=== PATIENT | female | born 1935 | race Caucasian/White ===

== ENCOUNTER 2018-02-04 09:27 | Inpatient (IN) | payer MEDICARE ==
[~2018-02-04] VITALS: Ht 157.5 cm; Wt 63.3 kg
[~2018-02-04 09:27] MED LIST: ALLOPURINOL100 MG PO; ARICEPT5 MG PO; ATORVASTATIN CA20 MG PO; B COMPLEX # 11 EACH PO; B-121000 MCG PO; BAYER WOMEN'S1 EACH PO; CITALOPRAM HBR20 MG PO; CRESTOR10 MG PO; DILTIAZEM HCL30 MG PO; ECOTRIN325 MG PO; EXELON1 EAC1 TD; GUAIFENESIN DM118 ML PO; IRBESARTAN150 MG PO; LEVAQUIN500 MG PO; LISINOPRIL2.5 MG PO; METOPROLOL TART25 MG PO; NAMENDA10 MG PO; NEXIUM40 MG PO; PEPCID20 MG PO; RISPERIDONE0.5 MG PO; VITAMIN D1000 UNI1 PO
[2018-02-04] MEDS ORDERED: ACETAMINOPHEN 1000 MG/100 ML IV STA (09:29)
[2018-02-04] MEDS ORDERED: SODIUM CHLORIDE 0.9% 1000ML 1,000 ML IV ONE (09:30)
[2018-02-04 10:17] LABS: BASOPHILS % 0.4 % (0.0-1.0); EOSINOPHILS % 0.2 % (0.0-6.0); HEMATOCRIT 44.7 % (34.2-44.1); HEMOGLOBIN 14.9 g/dL (12.0-16.0); LYMPHOCYTES # (AUTO) 0.5 (1.0-3.2); LYMPHOCYTES % 9.7 % (18.0-39.1); MEAN CORPUSCULAR HEMOGLOBIN 30.6 pg (28-32); MEAN CORPUSCULAR HGB CONC 33.3 g/dL (31-35); MEAN CORPUSCULAR VOLUME 91.8 fL (81-99); MONOCYTES # (AUTO) 0.3 (0.2-0.8); NEUTROPHILS # (AUTO) 4.7 (2.1-6.9); NEUTROPHILS % 84.7 % (38.7-80.0); PLATELET COUNT 179 x10e3/uL (140-360); RED BLOOD COUNT 4.87 x10e6/uL (3.6-5.1); RED CELL DISTRIBUTION WIDTH 11.6 % (11.7-14.4)
[2018-02-04 10:20] LABS: BILIRUBIN,URINE NEGATIVE (NEGATIVE); CLARITY,URINE CLOUDY (CLEAR); COLOR,URINE YELLOW (YELLOW); KETONES,URINE NEGATIVE (NEGATIVE); LEUKOCYTE ESTERASE ,URINE NEGATIVE (NEGATIVE); NITRITE,URINE NEGATIVE (NEGATIVE); PROTEIN,URINE DIPSTICK NEGATIVE (NEGATIVE); URINE UROBILINOGEN 0.2 mg/dL (0.2 - 1)
[2018-02-04] MEDS ORDERED: CIPRO500 MG PO (10:23)
[2018-02-04] MEDS ORDERED: ENALAPRILAT IV INJ 1.25 MG/ML VIAL IV ONE (10:30)
[2018-02-04 10:38] LABS: ALBUMIN 3.8 g/dL (3.5-5.0); ALBUMIN/GLOBULIN RATIO 1.1 (0.8-2.0); ANION GAP 11.9 mmol/L (8-16); CALCIUM 9.4 mg/dL (8.4-10.2); CREATININE, SERUM 1.14 mg/dL (0.57-1.11); POTASSIUM 3.9 mmol/L (3.5-5.1)
[2018-02-04 10:47] LABS: EPITHELIAL CELLS,URINE FEW /LPF; TRANSITIONAL EPI CELLS,URINE FEW
[2018-02-04 10:48] LABS: BACTERIA,URINE RARE /HPF; WBC,URINE (MAN) 0-5 /HPF (0-5)
[2018-02-04 10:49] LABS: AMORPHOUS SEDIMENT,URINE MANY (FEW)
[2018-02-04 11:10] LABS: LYMPHOCYTES % (MANUAL) 10 % (19-48); MONOCYTES % (MANUAL) 7 % (3.4-9.0); NEUTROPHILS % (MANUAL) 83 % (40-74)
[2018-02-04 11:11] LABS: PLATELET ESTIMATE ADEQUATE; PLATELET MORPHOLOGY COMMENT NORMAL; RBC MORPHOLOGY COMMENT NORMAL
--- NOTE | 2018-02-04 11:13 | Diagnostic Imaging Report ---
PROCEDURE: CHEST SINGLE (PORTABLE) COMPARISON: [facility], DX, CHEST SINGLE (PORTABLE), 05/17/2016, 12:19. INDICATIONS: AMS, WEAKNESS FINDINGS: LUNGS: No consolidations or edema. Streak-like density in the right lower lung zone again noted. PLEURA: No effusions or pneumothorax. HEART \T\ MEDIASTINUM: The heart is within normal size-limits. BONES \T\ SOFT TISSUES: No acute findings. CONCLUSION: No acute thoracic abnormality. Carrington Hernandez D.O. Dictated by: Carrington Hernandez D.O. on 02/04/2018 at 11:19 Electronically approved by: Carrington Hernandez D.O. on 02/04/2018 at 11:19
[2018-02-04] MEDS ORDERED: LEVOFLOXACIN 500MG/D5W 100ML 100 ML IV ONE (11:45)
[2018-02-04] MEDS ORDERED: ACETAMINOPHEN 1000 MG/100 ML IV PRN (11:45)
[2018-02-04] MEDS ORDERED: METOCLOPRAMIDE HCL 10 MG/2ML VIAL IV PRN (11:45)
[2018-02-04] MEDS ORDERED: SODIUM CHLORIDE FLUSH 10 ML SYR INJ PRN (11:45)
[2018-02-04] MEDS: SODIUM CHLORIDE 0.9% 1000ML 1,000 ML IV SCH ×2 (12:20→14:38)
[2018-02-04 13:28] VITALS: BP 143/64
[2018-02-04] MEDS ORDERED: ACETAMINOPHEN 325 MG TAB PO PRN (15:15)
[2018-02-04] MEDS ORDERED: ONDANSETRON HCL INJ 2 MG/ML VIAL IV PRN (15:15)
[2018-02-04 15:44] VITALS: BP 143/64
[2018-02-04 16:00] VITALS: BP 193/81
[2018-02-04] MEDS: DILTIAZEM HCL 30 MG TAB PO SCH ×2 (17:16→23:56)
[2018-02-04] MEDS ORDERED: DIATRIZOATE MEGL/DIATRIZOA SOD 30 ML BTL PO ONE (18:35)
--- NOTE | 2018-02-04 19:26 | Diagnostic Imaging Report ---
EXAMINATION: CHEST SINGLE (PORTABLE) INDICATION: Aspiration COMPARISON: 11/19/2015 FINDINGS: TUBES and LINES: None. LUNGS: Likely scarring/atelectasis in the lung bases with elevation of the right hemidiaphragm. Additionally, there are scattered ill-defined airspace opacities most pronounced in the left lower lung. PLEURA: No pleural effusion or pneumothorax. HEART AND MEDIASTINUM: The cardiomediastinal silhouette is unremarkable. BONES AND SOFT TISSUES: No acute osseous lesion. Soft tissues are unremarkable. UPPER ABDOMEN: No free air under the diaphragm. IMPRESSION: Ill-defined opacity most pronounced in the left lower lung worrisome for aspiration. Follow-up imaging is indicated to document clearing. Signed by: Dr. Livan Delvalle M.D. on 02/04/2018 7:23 PM
[2018-02-04] MEDS: HYDRALAZINE HCL 20 MG/ML VIAL IV PRN (20:48)
[2018-02-04] MEDS: DOXYCYCLINE 100MG/NS 100ML 100 ML IV SCH (20:54)
[2018-02-04 20:59] VITALS: BP 221/95
[2018-02-04] MEDS: HEPARIN SOD (PORCINE) 5,000 UNIT/ML VIAL SC SCH (21:33)
[2018-02-05] VITALS (9 sets, daily range): BP systolic 107–171; BP diastolic 57–81
[2018-02-05 05:13] LABS: BASOPHILS % 0.4 % (0.0-1.0); EOSINOPHILS % 0.5 % (0.0-6.0); HEMATOCRIT 39.2 % (34.2-44.1); HEMOGLOBIN 13.1 g/dL (12.0-16.0); LYMPHOCYTES # (AUTO) 1.1 (1.0-3.2); LYMPHOCYTES % 19.6 % (18.0-39.1); MEAN CORPUSCULAR HEMOGLOBIN 30.5 pg (28-32); MEAN CORPUSCULAR HGB CONC 33.4 g/dL (31-35); MEAN CORPUSCULAR VOLUME 91.4 fL (81-99); MONOCYTES # (AUTO) 0.5 (0.2-0.8); MONOCYTES % 9.7 % (4.4-11.3); NEUTROPHILS # (AUTO) 3.9 (2.1-6.9); NEUTROPHILS % 69.4 % (38.7-80.0); PLATELET COUNT 167 x10e3/uL (140-360); RED BLOOD COUNT 4.29 x10e6/uL (3.6-5.1); RED CELL DISTRIBUTION WIDTH 11.6 % (11.7-14.4)
[2018-02-05 05:56] LABS: ALANINE AMINOTRANSFERASE 10 IU/L (0-55); ALKALINE PHOSPHATASE 86 IU/L (40-150); ANION GAP 11.7 mmol/L (8-16); BLOOD UREA NITROGEN 15 mg/dL (7-26); BUN/CREATININE RATIO 17 (6-25); CALCIUM 8.5 mg/dL (8.4-10.2); CARBON DIOXIDE 24 mmol/L (22-29); CHLORIDE 110 mmol/L (98-107); CREATININE, SERUM 0.89 mg/dL (0.57-1.11); EST GLOMERULAR FILTRATION RATE > 60 ML/MIN (60-); GLUCOSE 101 mg/dL (74-118); MAGNESIUM 1.8 MG/DL (1.3-2.1); PHOSPHORUS 2.2 MG/DL (2.3-4.7); POTASSIUM 3.7 mmol/L (3.5-5.1); SODIUM 142 mmol/L (136-145)
[2018-02-05] MEDS: DILTIAZEM HCL 30 MG TAB PO SCH ×3 (06:00→17:59)
[2018-02-05] MEDS: HYDRALAZINE HCL 20 MG/ML VIAL IV PRN (06:12)
--- NOTE | 2018-02-05 06:47 | Diagnostic Imaging Report ---
EXAM: CHEST SINGLE (PORTABLE), AP 1 view INDICATION: Fever, abdominal pain COMPARISON: None FINDINGS: LINES/TUBES: None LUNGS: No consolidations or edema. Subsegmental atelectasis in each lung base. PLEURA: No effusions or pneumothorax. Stable elevation of the right hemidiaphragm. HEART AND MEDIASTINUM: Normal size and contour. BONES AND SOFT TISSUES: No acute findings. Right upper quadrant surgical clips. IMPRESSION: No acute thoracic abnormality. Signed by: Dr. Marian Salcedo M.D. on 02/05/2018 6:44 AM
--- NOTE | 2018-02-05 07:19 | Diagnostic Imaging Report ---
PROCEDURE: CT ABDOMEN AND PELVIS WITHOUT CONTRAST TECHNIQUE: The abdomen and pelvis were scanned utilizing a multidetector helical scanner from the diaphragm to the lesser trochanter. No oral or intravenous contrast was administered per referring physician request. Coronal and sagittal multiplanar reformations were obtained. COMPARISON: None. INDICATIONS: FEVER, ABDOMINAL PAIN FINDINGS: ABSENCE OF INTRAVENOUS CONTRAST DECREASES SENSITIVITY FOR DETECTION OF FOCAL LESIONS AND VASCULAR PATHOLOGY. LOWER THORAX: Subsegmental atelectasis in the right lower lobe. Atherosclerotic coronary artery calcifications. HEPATOBILIARY: Small left hepatic lobe. No focal hepatic lesion or intrahepatic biliary dilatation. The gallbladder has been removed with metallic surgical clips in the gallbladder fossa. SPLEEN: No splenomegaly. PANCREAS: No focal masses or ductal dilatation. The mild prominence of the common bile duct (1.1 cm). ADRENALS: No adrenal nodules. KIDNEYS/URETERS: Small right peripelvic renal cysts. No hydronephrosis or calculi. Exophytic subcentimeter hypoattenuating lesion projecting from the anterior aspect of the left kidney is too small to further characterize though likely to represent a small cyst. PELVIC ORGANS/BLADDER: Romo catheter lies within the urinary bladder, with air in its nondependent portion. The uterus is not identified and has presumably been removed. No adnexal mass. PERITONEUM / RETROPERITONEUM: No ascites. No pneumoperitoneum. LYMPH NODES: No pelvic sidewall, retroperitoneal, or mesenteric lymphadenopathy. VESSELS: Atherosclerotic calcification of the abdominal aorta and major branch vessels without aneurysmal dilatation. Otherwise limited evaluation in the absence of intravenous contrast. GI TRACT: The large bowel is notable for innumerable diverticula along the descending and sigmoid colon, without wall thickening or adjacent inflammatory change. The appendix is not identified. No right lower quadrant inflammatory change. The stomach is collapsed with prominence of the rugal folds are. Incidental note of midgut malrotation. No small bowel dilatation to suggest obstruction. BONES AND SOFT TISSUES: Small fat-containing umbilical hernia. Otherwise no focal soft tissue abnormalities. The bones are osteopenic with multilevel degenerative disc changes and facet arthropathy of the lumbar spine. IMPRESSION: No acute intra-abdominal or pelvic CT abnormalities. Large bowel diverticulosis without findings of diverticulitis. 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 Atherosclerotic vascular disease. Mild prominence of the common bile duct is likely related to patient age and postcholecystectomy status. Correlate with serum bilirubin. Dictated by: Williams Ovalle M.D. on 02/05/2018 at 7:24 Electronically approved by: Williams Ovalle M.D. on 02/05/2018 at 7:24
[2018-02-05] MEDS: DOXYCYCLINE 100MG/NS 100ML 100 ML IV SCH ×2 (08:00→20:38)
[2018-02-05] MEDS: HEPARIN SOD (PORCINE) 5,000 UNIT/ML VIAL SC SCH ×2 (09:43→20:38)
--- NOTE | 2018-02-05 14:46 | Diagnostic Imaging Report ---
PROCEDURE:X-RAY MODIFIED BARIUM SWALLOW COMPARISON:None. INDICATIONS:Dysphagia DISCUSSION:Fluoroscopic examination was performed in conjunction with speech pathology, during swallowing of a variety of thin and thick liquid consistencies. Examination showed premature spillage over the base of the tongue and vallecula with mixed texture. Shallow flash laryngeal penetration was noted X1 with mixed texture. No aspiration. No vallecular residue was noted. CONCLUSION:No aspiration. Please see the report from speech pathology for complete details. Aashish Hawkins M.D. Dictated by: Aashish Hawkins M.D. on 02/05/2018 at 14:51 Electronically approved by: Aashish Hawkins M.D. on 02/05/2018 at 14:51
[2018-02-06] MEDS: DILTIAZEM HCL 30 MG TAB PO SCH ×2 (00:11→06:22)
[2018-02-06 00:34] VITALS: BP 143/64
[2018-02-06 06:28] VITALS: BP 178/74
[2018-02-06 08:19] VITALS: BP 171/71
[2018-02-06] MEDS: DOXYCYCLINE 100MG/NS 100ML 100 ML IV SCH (08:26)
[2018-02-06] MEDS: HYDRALAZINE HCL 20 MG/ML VIAL IV PRN (08:26)
[2018-02-06] MEDS: HEPARIN SOD (PORCINE) 5,000 UNIT/ML VIAL SC SCH (09:00)
[2018-02-06] MEDS ORDERED: CIPROFLOXACIN 500 MG TAB PO NR (11:00)
[2018-02-06] MEDS ORDERED: NIFEDIPINE CR 30 MG TAB PO SCH (11:00)
--- NOTE | 2018-02-06 11:22 | Discharge Summary ---
FINAL DIAGNOSIS: Delirium of unclear etiology, resolved. SECONDARY DIAGNOSES 1. Debility. 2. Dementia. 3. Hypertension. 4. Mild acute kidney injury. 5. Chronic recurring urinary tract infection. CONSULTANTS: None. PROCEDURES/STUDIES PERFORMED 1. Abdominal CT. 2. Modified barium swallow. HISTORY: Per H\T\P. HOSPITAL COURSE: The patient was admitted. Her delirium got better. Etiology is not completely clear. Possibly some transient aspiration. First chest x-ray was normal. Second one shows aspiration. Third one shows normal again. Speech therapist saw the patient. Modified barium swallow was done, which was unremarkable, other than needs to take small bites. did endorse that there are infrequent choking episodes at home when he feeds her too fast. The other possibility is her chronic recurring UTI. At this time, her urine is okay; however, patient does take chronic suppressive low-dose Cipro to suppress this. Patient received heparin subcut for DVT prophylaxis. Patient takes diltiazem at home for high blood pressure; however, here it is not controlled. I will go ahead and switch her diltiazem to nifedipine XL. Patient was seen and examined today. I took 32 minutes total to discharge this patient. I have updated her [id number] at the bedside and also her over the phone. CONDITION ON DISCHARGE: Stable. DISCHARGE MEDICATIONS: Please see medication reconciliation form. SAM ALCARAZ M.D. Job#: [id number] TA
[2018-02-06 11:33] VITALS: BP 110/50
[2018-02-06] MEDS ORDERED: PROCARDIA XL30 MG PO (11:40)
== END 2018-02-06 12:37 | disposition home or self-care (01) | DRG 71 ==
LOC: ER 09:33 → ERHOLD 11:40 → MED/SURG2 13:36
PROVIDERS: ADMIT Internal Medicine; ATTEND Internal Medicine
DX: G93.40 Encephalopathy, unspecified (principal); N17.9 Acute kidney failure, unspecified; N39.0 Urinary tract infection, site not specified; R41.0 Disorientation, unspecified; E16.2 Hypoglycemia, unspecified; F03.90 Unspecified dementia, unspecified severity, without behavioral disturbance, psychotic disturbance, mood disturbance, and anxiety; R53.81 Other malaise; R13.10 Dysphagia, unspecified; I10 Essential (primary) hypertension
CPT/HCPCS: 36415; 51700; 71045; 74176; 74230; 80053; 81001; 82948; 83605; 83735; 84100; 85025; 87040; 87086; 93005; 97139; 99284; J0360; J1644; J1956; J7030

== ENCOUNTER 2020-06-24 15:17 | Inpatient (IN) | payer MEDICARE ==
[~2020-06-24] VITALS: Ht 157.5 cm; Wt 64.1 kg
[~2020-06-24 15:17] MED LIST changes: +CIPRO500 MG PO; +PROCARDIA XL30 MG PO
[2020-06-24] MEDS ORDERED: CEFTRIAXONE SOD 1 GM/NS 50 ML 50 ML IV ONE (16:00)
[2020-06-24] MEDS ORDERED: AZITHROMYCIN 500MG/NS 250 ML 250 ML IV ONE (16:00)
[2020-06-24] MEDS ORDERED: DEXAMETHASONE SOD PHOS 10 MG/1 ML VIAL IV NR (16:00)
[2020-06-24 16:34] LABS: BASOPHILS % 0.2 % (0.0-1.0); EOSINOPHILS # (AUTO) 0.1 (0.0-0.4); EOSINOPHILS % 0.8 % (0.0-6.0); HEMATOCRIT 45.3 % (34.2-44.1); HEMOGLOBIN 14.5 g/dL (12.0-16.0); LYMPHOCYTES # (AUTO) 0.9 (1.0-3.2); LYMPHOCYTES % 8.8 % (18.0-39.1); MEAN CORPUSCULAR HEMOGLOBIN 30.8 pg (28-32); MEAN CORPUSCULAR VOLUME 96.2 fL (81-99); MONOCYTES # (AUTO) 0.6 (0.2-0.8); NEUTROPHILS # (AUTO) 8.3 (2.1-6.9); NEUTROPHILS % 83.8 % (38.7-80.0); PLATELET COUNT 198 x10e3/uL (140-360); RED BLOOD COUNT 4.71 x10e6/uL (3.6-5.1); RED CELL DISTRIBUTION WIDTH 11.6 % (11.7-14.4)
[2020-06-24 16:49] LABS: INR 0.91; PROTHROMBIN TIME 12.7 seconds (11.9-14.5)
[2020-06-24 16:50] LABS: PARTIAL THROMBOPLASTIN TIME 24.9 seconds (23.8-35.5)
[2020-06-24] MEDS ORDERED: ALBUTEROL/IPRATROPIUM 3 ML NEB NEB ONE (17:15)
[2020-06-24 17:23] LABS: CLARITY,URINE CLOUDY (CLEAR); COLOR,URINE YELLOW (YELLOW); LEUKOCYTE ESTERASE ,URINE 1+ (NEGATIVE)
[2020-06-24 17:24] LABS: KETONES,URINE NEGATIVE (NEGATIVE); NITRITE,URINE NEGATIVE (NEGATIVE); PROTEIN,URINE DIPSTICK NEGATIVE (NEGATIVE); URINE UROBILINOGEN 0.2 mg/dL (0.2 - 1)
[2020-06-24 17:38] LABS: AMORPHOUS SEDIMENT,URINE MANY (FEW); BACTERIA,URINE MANY /HPF; EPITHELIAL CELLS,URINE FEW /LPF
[2020-06-24 21:44] LABS: ALANINE AMINOTRANSFERASE 23 IU/L (0-55); ALBUMIN 4.1 g/dL (3.5-5.0); ALBUMIN/GLOBULIN RATIO 1.2 (0.8-2.0); ALKALINE PHOSPHATASE 103 IU/L (40-150); BLOOD UREA NITROGEN 33 mg/dL (7-26); BUN/CREATININE RATIO 34 (6-25); CALCIUM 9.3 mg/dL (8.4-10.2); CARBON DIOXIDE 25 mmol/L (22-29); CHLORIDE 100 mmol/L (98-107); CREATINE KINASE 30 IU/L (29-168); CREATININE, SERUM 0.96 mg/dL (0.57-1.11); EST GLOMERULAR FILTRATION RATE 55 ML/MIN (60-); GLUCOSE 91 mg/dL (74-118); SODIUM 137 mmol/L (136-145)
[2020-06-24] MEDS ORDERED: LACTATED RINGER'S 500 ML IV ONE (22:00)
[2020-06-24] MEDS ORDERED: LACTATED RINGER'S 1,000 ML ONE (22:16)
[2020-06-24] MEDS ORDERED: LABETALOL HCL 5 MG/ML 20ML VIAL IV STA (22:50)
[2020-06-24] MEDS ORDERED: LABETALOL HCL 20 ML ONE (22:54)
[2020-06-24] MEDS ORDERED: MORPHINE SULFATE INJ 4 MG/ML INJ 1ML IV PRN (22:55)
[2020-06-24] MEDS ORDERED: ONDANSETRON HCL INJ 2MG/ML 2ML 2 MG/ML VIAL IV PRN ×2 (23:00→23:15)
[2020-06-24] MEDS ORDERED: ACETAMINOPHEN 325 MG TAB PO PRN (23:15)
[2020-06-24] MEDS ORDERED: HYDRALAZINE HCL 20 MG/ML VIAL IV PRN (23:15)
[2020-06-24] MEDS ORDERED: DOCUSATE SODIUM 100 MG CAP PO PRN (23:15)
[2020-06-24] MEDS ORDERED: MELATONIN 5 MG TABLET PO PRN (23:15)
[2020-06-24] MEDS ORDERED: ALBUTEROL/IPRATROPIUM 3 ML NEB NEB PRN (23:15)
[2020-06-24] MEDS ORDERED: CHLORASEPTIC SPRAY 177 ML BTL MM PRN (23:15)
[2020-06-24] MEDS ORDERED: LIDOCAINE 4% PATCH TP PRN (23:15)
[2020-06-24] MEDS ORDERED: POTASSIUM CHLORIDE 20 MEQ TAB CR PO PRN (23:15)
[2020-06-24] MEDS ORDERED: SIMETHICONE 80 MG CHEW PO PRN (23:15)
[2020-06-24] MEDS ORDERED: POLYETHYLENE GLYCOL 3350 17 GM PACK PO PRN (23:15)
[2020-06-24] MEDS ORDERED: DEXTROSE 50% SYRINGE 50 ML IV PRN (23:15)
[2020-06-24] MEDS ORDERED: HYDROCODONE/APAP 5MG-325MG TAB PO PRN (23:15)
[2020-06-24] MEDS ORDERED: GUAIFENESIN/CODEINE 10 ML CUP PO PRN (23:15)
[2020-06-24] MEDS ORDERED: DIPHENHYDRAMINE HCL 25 MG CAP PO PRN (23:15)
[2020-06-25] VITALS (28 sets, daily range): BP systolic 54–172; BP diastolic 37–100
[2020-06-25] MEDS: AZITHROMYCIN 500MG/NS 250 ML 250 ML IV SCH ×2 (00:37→22:30)
[2020-06-25] MEDS ORDERED: SODIUM CHLORIDE 0.9% 50ML 50 ML ONE (03:14)
[2020-06-25] MEDS ORDERED: IOPAMIDOL 370 MG/ML 200 ML INFUS..BTL INJ ONE (03:14)
[2020-06-25] MEDS ORDERED: PANTOPRAZOLE SOD 40 MG TABEC PO SCH (07:30)
[2020-06-25] MEDS: MIDAZOLAM HCL 50 MG in SODIUM CHLORIDE 0.9% 100 ML 90 ML IV PRN ×2 (08:00→09:00)
[2020-06-25] MEDS ORDERED: FENTANYL CITRATE INJ 2,000 MCG in SODIUM CHLORIDE 0.9% 250ML 210 ML IV SCH (08:00)
[2020-06-25] MEDS ORDERED: MIDAZOLAM HCL 5MG/ML 10ML VIAL 100 ML IV ONE (08:06)
[2020-06-25] MEDS ORDERED: FENTANYL 2000MCG/NS 250 250 ML ONE (08:06)
[2020-06-25 08:14] LABS: BASOPHILS # (AUTO) 0.1 (0.0-0.1); BASOPHILS % 0.3 % (0.0-1.0); HEMATOCRIT 43.4 % (34.2-44.1); HEMOGLOBIN 13.8 g/dL (12.0-16.0); LYMPHOCYTES # (AUTO) 0.5 (1.0-3.2); LYMPHOCYTES % 2.7 % (18.0-39.1); MEAN CORPUSCULAR HEMOGLOBIN 31.5 pg (28-32); MEAN CORPUSCULAR HGB CONC 31.8 g/dL (31-35); MEAN CORPUSCULAR VOLUME 99.1 fL (81-99); MONOCYTES # (AUTO) 0.8 (0.2-0.8); MONOCYTES % 4.4 % (4.4-11.3); NEUTROPHILS # (AUTO) 16.5 (2.1-6.9); NEUTROPHILS % 92.2 % (38.7-80.0); PLATELET COUNT 195 x10e3/uL (140-360); RED BLOOD COUNT 4.38 x10e6/uL (3.6-5.1); RED CELL DISTRIBUTION WIDTH 11.3 % (11.7-14.4)
[2020-06-25 08:38] LABS: ANION GAP 15.7 mmol/L (8-16); CALCIUM 8.8 mg/dL (8.4-10.2); CREATININE, SERUM 0.97 mg/dL (0.57-1.11); POTASSIUM 5.7 mmol/L (3.5-5.1)
[2020-06-25] MEDS ORDERED: CEFTRIAXONE SOD 1 GM/NS 50 ML 50 ML IV SCH (09:00)
[2020-06-25 09:03] LABS: MAGNESIUM 1.9 MG/DL (1.3-2.1); PHOSPHORUS 4.2 MG/DL (2.3-4.7)
[2020-06-25 09:26] LABS: ABG HCO3 27 mmol/L (22-26); ABG PCO2 47 mmHg (35-45); ABG PH 7.38 (7.35-7.45); ABG PO2 304 mmHg (80-105); ABG TCO2 29
[2020-06-25] MEDS ORDERED: SODIUM CHLORIDE 0.9% 1000ML 1,000 ML IV ONE ×2 (09:30→17:15)
[2020-06-25] MEDS ORDERED: LIDOCAINE HCL 2% LOCAL 20 ML VIAL ONE (09:56)
[2020-06-25 10:36] LABS: BAND NEUTROPHILS % (MANUAL) 2 %; LYMPHOCYTES % (MANUAL) 6 % (19-48); MONOCYTES % (MANUAL) 4 % (3.4-9.0); NEUTROPHILS % (MANUAL) 88 % (40-74); PLATELET ESTIMATE ADEQUATE; PLATELET MORPHOLOGY COMMENT NORMAL; RBC MORPHOLOGY COMMENT NORMAL
[2020-06-25] MEDS ORDERED: VANCOMYCIN 1GM/NS 250 ML 250 ML IV ONE (10:45)
[2020-06-25] MEDS ORDERED: NOREPINEPHRINE 8 MG/D5W 250 ML 250 ML ONE (10:53)
[2020-06-25] MEDS ORDERED: FUROSEMIDE INJ 10 MG/ML 4 ML VIAL IV NR (13:30)
[2020-06-25] MEDS: PROPOFOL IV EMULSION 10MG/ML 100 ML IV SCH ×3 (13:30→15:10)
[2020-06-25] MEDS: MEROPENEM 1GM 100 ML IV SCH ×3 (14:00→22:30)
[2020-06-25] MEDS ORDERED: SODIUM CHLORIDE 0.9% 1000ML 1,000 ML ONE (14:05)
[2020-06-25] MEDS ORDERED: ENOXAPARIN SOD INJ 40 MG/0.4 ML SYR SC SCH (17:00)
[2020-06-25] MEDS: FAMOTIDINE 20 MG/2 ML VIAL IV SCH (17:13)
[2020-06-25] MEDS: MEMANTINE 10 MG TAB PO SCH (17:13)
[2020-06-25] MEDS ORDERED: SODIUM CHLORIDE 0.9% 250ML 250 ML ONE (18:10)
[2020-06-25] MEDS ORDERED: SODIUM CHLORIDE 0.9% 1000ML 1,000 ML IV SCH (18:45)
[2020-06-25 20:19] LABS: ABG PH 7.59 (7.35-7.45)
[2020-06-25] MEDS ORDERED: DONEPEZIL HCL 5 MG TAB PO SCH (21:00)
[2020-06-25] MEDS ORDERED: MEMANTINE 10 MG TAB PO SCH (21:00)
[2020-06-25] MEDS: INSULIN REGULAR, HUMAN 100 UNIT/1 ML 3ML VIAL SQ SCH (21:00)
[2020-06-25] MEDS ORDERED: ATORVASTATIN 20 MG TAB PO SCH (21:00)
[2020-06-25] MEDS ORDERED: FENTANYL CITRATE INJ 2,000 MCG in SODIUM CHLORIDE 0.9% 250ML 210 ML IV PRN (22:15)
[2020-06-26] VITALS (32 sets, daily range): BP systolic 66–206; BP diastolic 47–101
[2020-06-26] MEDS: PROPOFOL IV EMULSION 10MG/ML 100 ML IV SCH (04:45)
[2020-06-26] MEDS: MEROPENEM 1GM 100 ML IV SCH (05:00)
[2020-06-26 06:02] LABS: BASOPHILS % 0.2 % (0.0-1.0); HEMATOCRIT 34.4 % (34.2-44.1); HEMOGLOBIN 11.1 g/dL (12.0-16.0); LYMPHOCYTES # (AUTO) 0.7 (1.0-3.2); LYMPHOCYTES % 5.2 % (18.0-39.1); MEAN CORPUSCULAR HGB CONC 32.3 g/dL (31-35); MEAN CORPUSCULAR VOLUME 96.1 fL (81-99); MONOCYTES # (AUTO) 0.9 (0.2-0.8); MONOCYTES % 6.4 % (4.4-11.3); NEUTROPHILS % 87.7 % (38.7-80.0); PLATELET COUNT 185 x10e3/uL (140-360); RED BLOOD COUNT 3.58 x10e6/uL (3.6-5.1); RED CELL DISTRIBUTION WIDTH 12.1 % (11.7-14.4)
[2020-06-26 06:13] LABS: ALBUMIN 2.5 g/dL (3.5-5.0); ALBUMIN/GLOBULIN RATIO 0.9 (0.8-2.0); ANION GAP 11.6 mmol/L (8-16); CALCIUM 7.5 mg/dL (8.4-10.2); CREATININE, SERUM 0.89 mg/dL (0.57-1.11); POTASSIUM 4.6 mmol/L (3.5-5.1)
[2020-06-26] MEDS: INSULIN REGULAR, HUMAN 100 UNIT/1 ML 3ML VIAL SQ SCH ×2 (07:30→11:30)
[2020-06-26] MEDS ORDERED: CITALOPRAM HYDROBROMIDE 20 MG TAB PO SCH (09:00)
[2020-06-26] MEDS: FAMOTIDINE 20 MG/2 ML VIAL IV SCH ×2 (09:20→17:03)
[2020-06-26] MEDS: MEMANTINE 10 MG TAB PO SCH (09:21)
[2020-06-26] MEDS ORDERED: FUROSEMIDE INJ 10 MG/ML 4 ML VIAL IV ONE (10:30)
[2020-06-26] MEDS ORDERED: ALBUMIN 25% 25GM 100ML 100 ML IV SCH (11:00)
[2020-06-26 11:53] LABS: ABG HCO3 23 mmol/L (22-26); ABG PCO2 39 mmHg (35-45); ABG PH 7.39 (7.35-7.45); ABG PO2 130 mmHg (80-105); ABG TCO2 24
[2020-06-26] MEDS ORDERED: METHYLPREDNISOLONE SOD SUCC 40 MG/ML VIAL 1ML IV ONE (12:00)
[2020-06-26] MEDS ORDERED: SCOPOLAMINE 1.5 MG PATCH TOP SCH (13:00)
[2020-06-26] MEDS ORDERED: MORPHINE SULFATE 2 MG/ML SYR 1ML IV PRN ×2 (13:00→16:15)
[2020-06-26] MEDS ORDERED: MORPHINE SULFATE 2 MG/ML SYR 1ML ONE (13:03)
[2020-06-26] MEDS ORDERED: METOPROLOL TARTRATE INJ 1 MG/ML VIAL IV SCH (14:00)
[2020-06-26] MEDS ORDERED: GLYCOPYRROLATE INJ 0.2 MG/ML VIAL IV ONE (14:30)
[2020-06-26] MEDS: MORPHINE SULFATE 2 MG/ML SYR 1ML IV ONE ×2 (14:32→14:52)
[2020-06-26] MEDS ORDERED: LORAZEPAM INJ 2 MG/ML VIAL IV ONE (15:55)
[2020-06-26] MEDS ORDERED: LORAZEPAM INJ 2 MG/ML VIAL ONE (15:55)
[2020-06-26] MEDS ORDERED: LORAZEPAM INJ 2 MG/ML VIAL IV PRN (16:00)
[2020-06-26] MEDS ORDERED: ETOMIDATE 2 MG/ML 10 ML INJ IV ONE (17:31)
[2020-06-26] MEDS ORDERED: SUCCINYLCHOLINE CHLORIDE 20 MG/ML 10ML VIAL ONE (17:31)
[2020-06-26] MEDS ORDERED: ALBUMIN 25% 25GM 100ML 0.25 GM/ML BTL IV SCH (21:00)
== END 2020-06-26 18:11 | disposition hospice, home (50) | DRG 871 ==
LOC: ER 15:37 → ERHOLD 22:58 → MED/SURG2 06-25 01:20 → ICU 06-25 07:45
PROVIDERS: ADMIT Internal Medicine; ATTEND Internal Medicine
PROC: 5A1945Z Respiratory Ventilation, 24-96 Consecutive Hours (ICD-10-PCS; principal; 2020-06-25)
PROC: 02HV33Z Insertion of Infusion Device into Superior Vena Cava, Percutaneous Approach (ICD-10-PCS; 2020-06-25)
PROC: B548ZZA Ultrasonography of Superior Vena Cava, Guidance (ICD-10-PCS; 2020-06-25)
PROC: 3E043XZ Introduction of Vasopressor into Central Vein, Percutaneous Approach (ICD-10-PCS; 2020-06-25)
PROC: 0BH17EZ Insertion of Endotracheal Airway into Trachea, Via Natural or Artificial Opening (ICD-10-PCS; 2020-06-25)
DX: A41.9 Sepsis, unspecified organism (principal); R65.21 Severe sepsis with septic shock; G93.41 Metabolic encephalopathy; J18.9 Pneumonia, unspecified organism; J96.00 Acute respiratory failure, unspecified whether with hypoxia or hypercapnia; E44.0 Moderate protein-calorie malnutrition; C34.31 Malignant neoplasm of lower lobe, right bronchus or lung; C10.4 Malignant neoplasm of branchial cleft; F02.80 Dementia in other diseases classified elsewhere, unspecified severity, without behavioral disturbance, psychotic disturbance, mood disturbance, and anxiety; G30.9 Alzheimer's disease, unspecified; I95.9 Hypotension, unspecified; E87.5 Hyperkalemia; R62.7 Adult failure to thrive; Z68.25 Body mass index [BMI] 25.0-25.9, adult; J98.4 Other disorders of lung; E07.9 Disorder of thyroid, unspecified; Z74.01 Bed confinement status; F09 Unspecified mental disorder due to known physiological condition; Z66 Do not resuscitate
CPT/HCPCS: 31500; 36415; 36600; 71045; 71260; 74018; 80048; 80053; 81001; 82550; 82553; 82805; 82948; 83605; 83735; 83880; 84100; 84132; 84484; 85025; 85610; 85730; 87040; 87086; 93005; 93306; 94002; 94003; 94640; 97139; 99284; J0330; J0456; J0696; J1100; J1650; J1940; J2001; J2060; J2250; J2270; J2405; J2920; J3370; J7030; J7050; J7120; J7121; P9047; Q9967; U0002